=== PATIENT | male | born 1995 | race Caucasian/White ===

== ENCOUNTER 2017-07-02 01:15 | Emergency (ER) | payer OTHER ==
[2017-07-02 05:23] VITALS: BP 124/71
== END 2017-07-02 04:58 | disposition home or self-care (01) ==
LOC: ED 01:15
DX: J02.9 Acute pharyngitis, unspecified (principal); J45.909 Unspecified asthma, uncomplicated; Z79.51 Long term (current) use of inhaled steroids
CPT/HCPCS: J1885